=== PATIENT | female | born 1935 | race Caucasian/White ===

== ENCOUNTER 2019-04-26 13:22 | Inpatient (IN) ==
--- NOTE | 2019-04-26 14:32 | EKG Report ---
Test Performed on : 04/26/2019 2:25:03 PM Test Reason : sob Blood Pressure : / mmHG Vent. Rate : 053 BPM Atrial Rate : 053 BPM P-R Int : 000 ms QRS Dur : 114 ms QT Int : 438 ms P-R-T Axes : 000 -18 064 degrees QTc Int : 410 ms Junctional rhythm. Incomplete left bundle branch block Nonspecific T wave abnormality Abnormal ECG When compared with ECG of 21-SEP-2017 22:36, Junctional rhythm. has replaced Sinus rhythm. Incomplete left bundle branch block has replaced Incomplete right bundle branch block Unconfirmed Result
[2019-04-26 14:51] LABS: BASO# 0.03 X1000 (0.0-0.2); BASO% 0.6 % (0.0-0.8); EOS# 0.16 X1000 (0.0-0.7); EOS% 3.2 % (0.0-10.0); HEMATOCRIT 30.4 % (37.0-47.0); HEMOGLOBIN 10.3 g/dL (12.0-16.0); LYMPH# 1.13 X1000 (1.2-3.4); LYMPH% 22.9 % (20.5-51.1); MCH 34.3 PG (27-31); MCHC 33.9 g/dL (33-37); MCV 101.3 FL (81-99); MONO# 0.29 X1000 (0.11-0.59); MONO% 5.9 % (1.7-9.3); MPV 11.1 FL (7.4-10.4); NEUT# 3.33 X1000 (1.4-6.5); NEUT% 67.4 % (42.2-75.2); PLT 146 X1000 (130-400); RDW 17.1 % (11.5-14.5); WBC 4.94 X1000 (4.8-10.8)
[2019-04-26] MEDS ORDERED: LASIX IV ONE (15:16)
[2019-04-26 15:23] LABS: ALB/GLOB RATIO 1.4; ALBUMIN 3.4 g/dL (3.5-5.0); CALCIUM 8.8 mg/dL (8.8-10.2); CREATININE 1.6 mg/dL (0.5-0.9); POTASSIUM 3.9 mmol/L (3.5-5.1); TOTAL BILIRUBIN 0.4 mg/dL (0.20-1.00); TOTAL PROTEIN 5.8 g/dL (6.3-8.3)
--- NOTE | 2019-04-26 16:00 | Diag Imaging Result Doc PS360 ---
CHEST-PORTABLE - 04/26/2019 INDICATION: sob COMPARISON: 09/21/2017 FINDINGS: Lung volumes are severely low. There is cardiomegaly. There are bibasilar airspace opacifications, likely pleural effusions. Infiltrates cannot be excluded. No obvious pulmonary edema. IMPRESSION: Nonspecific findings. Electronically signed by Cam Magdaleno 04/26/2019 3:58 PM
--- NOTE | 2019-04-26 17:10 | PROVIDER DOCUMENTATION ---
This chart was entered by Radhames Aldrich Scribe, acting as scribe for Kleber Monte DO. HPI-Musculoskeletal Pain/Inj - GENERAL Chief Complaint: Shortness of Breath Stated Complaint: SOB Time Seen by Provider: 04/26/19 14:04 Source: patient, EMS - HX OF PRESENT ILLNESS-MUSKULOSKELTAL Nature of Presenting Problem: 83 yof presents to the ed v/a ems with c/o LE pain and SOB. pt states started a week ago. pt states LE pain has gotten worse , with standing. pt states SOB and chest pain started today. pt "was put on tremors medication but doesn't remember what it is ." Quality of Pain: reports: aching Severity in ED: mild Onset/Duration: 1 week ago (LE pain), this morning (SOB, chest pain) Timing: still present Modifying Factors: improves with: nothing Any recent injury?: No Locality of Occurance: Home Similar Symptoms Previously?: No Recently seen or treated by another doctor?: No - TRUNK INJURY Location of Injury(s)/Pain: reports: chest Context / Method of Injury: reports: none Associated Symptoms: reports: chest pain - LOWER EXTREMITY PAIN/INJURY Lower Extremities Pain: leg: bilateral Context / Method of Injury: reports: unknown Associated Symptoms: reports: denies symptoms Review of Systems - Adult - REVIEW OF SYSTEMS - ADULT Constitutional: denies: chills, fever Eyes: reports: no symptoms reported Ears, Nose, Mouth & Throat: reports: no symptoms reported Cardiovascular: reports: chest pain. denies: palpitations, syncope Respiratory: reports: shortness of breath. denies: cough, dyspnea on exertion, wheezing Gastrointestinal: denies: abdominal pain, nausea, vomiting Genitourinary: reports: no symptoms reported Musculoskeletal: reports: see HPI. denies: back pain, neck pain Integumentary: reports: no symptoms reported Neurological: denies: dizziness/vertigo, headache/migraines Psychiatric: reports: no symptoms reported Endocrine: reports: no symptoms reported Hematologic/Lymphatic: reports: no symptoms reported Allergic/Immunologic: reports: no symptoms reported All Other Systems: Reviewed and Negative Past History - Adult - PAST MEDICAL HISTORY-ADULT Review of Records: reports: Old Records Reviewed, Nursing Assessment Review, Medications Reviewed, Social history reviewed & non-contributory. Major Childhood Illnesses: reports: denies history Cardiovascular: reports: HTN Respiratory: reports: denies history Gastrointestinal: reports: GERD Obstetrical/Gynecological: reports: denies history Genitourinary: reports: denies history Musculoskeletal: reports: denies history Neurological: reports: CVA Psychiatric: reports: denies history Endocrine/Immune: reports: cancer (Leukemia) Other Conditions: reports: denies history - PRIOR SURGERIES/PROCEDURES Surgical/Procedure History: reports: hysterectomy, hernia repair, joint replacement, back/neck (back ), other (cataract removal) - PRIOR HOSPITALIZATIONS Prior Hospitalizations: reports: for other non-related - IMMUNIZATION STATUS Childhood Immunizations: See Nurse Assessment Flu Vaccine: See Nurse Assessment - FAMILY HISTORY Family History: reviewed, not pertinent - SOCIAL HISTORY Smoking: cigarettes, less than 1 pack/day Provider spent 3-5 mins advising pt. on dangers of tobacco.: Discussed manners to quit use, and f/u contacts for add'l counseling. Living Situation: family Physical Exam-Injury Related - Physical Exam-Injury Related Initial Vital Signs Reviewed: Yes General Appearance: appears well, alert, no apparent distress Eyes: PERRL/EOMI Head, Ears, Nose, Mouth & Throat: moist mucous membranes, normal ENT inspection, TMs normal (dry mouth) Neck: non-tender, full range of motion, supple Respiratory: chest non-tender, lungs clear, normal breath sounds, rales. negative: stridor, wheezing Cardiovascular: bradycardia (56) Chest/Breast: deferred Abdominal Exam: normal bowel sounds, non tender, soft. negative: guarding, rigid, rebound, tenderness Female Genitalia/Pelvic Exam: deferred Lymphatic: no adenopathy Back Exam: normal inspection, no CVA tenderness Extremity: normal range of motion, non-tender, normal gait Integumentary: normal color, warm/dry Neurologic: grossly normal Psych/Mental Status: normal mood/affect, normal thought content, normal thought process, oriented x 3 - Glascow Coma Score Best Eye Response ([place]): (4) open spontaneously Best Verbal Response ([place]): (5) oriented Best Motor Response ([place]): (6) obeys commands [place] Total: 15 Progress - PLAN OF CARE/RESULTS Progress/Plan/Lab Results: Vital Signs - 8 hr 04/26/19 14:17 Temperature 97.6 F Pulse Rate 56 L Respiratory Rate 15 Blood Pressure 141/63 O2 Sat by Pulse Oximetry 90 L Laboratory Results - last 24 hr 10/05/19 10/05/19 10/05/19 14:32 14:32 14:32 WBC RBC Hgb Hct MCV MCH MCHC RDW Std Deviation Plt Count MPV Immature Gran % (Auto) Neut % (Auto) Lymph % (Auto) [place] % (Auto) Eos % (Auto) Baso % (Auto) Immature Gran # (Auto) Neut # (Auto) Lymph # (Auto) [place] # (Auto) Eos # (Auto) Baso # (Auto) Sodium 141 Potassium 3.9 Chloride 101 Carbon Dioxide 29 Anion Gap 11 BUN 16 Creatinine 1.6 H Estimated GFR/1.73 m2 31 BUN/Creatinine Ratio 10 Glucose 153 H Calculated Osmolality 285 Calcium 8.8 Total Bilirubin 0.40 AST 32 H ALT 18 Alkaline Phosphatase 155 H Troponin T 0.053 Phb-W-Zezvgftfyco Pept 3269 H Total Protein 5.8 L Albumin 3.4 L Globulin 2.4 Albumin/Globulin Ratio 1.4 04/26/19 14:32 WBC 4.94 RBC 3.00 L Hgb 10.3 L Hct 30.4 L MCV 101.3 H MCH 34.3 H MCHC 33.9 RDW Std Deviation 17.1 H Plt Count 146 MPV 11.1 H Immature Gran % (Auto) 0.0 Neut % (Auto) 67.4 Lymph % (Auto) 22.9 [place] % (Auto) 5.9 Eos % (Auto) 3.2 Baso % (Auto) 0.6 Immature Gran # (Auto) 0.00 Neut # (Auto) 3.33 Lymph # (Auto) 1.13 L [place] # (Auto) 0.29 Eos # (Auto) 0.16 Baso # (Auto) 0.03 Sodium Potassium Chloride Carbon Dioxide Anion Gap BUN Creatinine Estimated GFR/1.73 m2 BUN/Creatinine Ratio Glucose Calculated Osmolality Calcium Total Bilirubin AST ALT Alkaline Phosphatase Troponin T Zby-H-Zglpuzscemy Pept Total Protein Albumin Globulin Albumin/Globulin Ratio Orders Category Date Time Status CHEST-PORTABLE [RAD] Stat Exams 04/26/19 14:14 Completed CBC WITH ELECTRONIC DIFF [HEME] Stat Lab 04/26/19 14:32 Completed CK PROFILE [SP CHEM] Stat Lab 04/26/19 15:50 Ordered COMPREHENSIVE METABOLIC PANEL [CHEM] Stat Lab 04/26/19 14:32 Completed PRO B-NATRIURETIC PEPTIDE Stat Lab 04/26/19 14:32 Completed TROPONIN T Stat Lab 04/26/19 14:32 Completed TROPONIN T Stat Lab 04/26/19 15:50 Ordered Furosemide [Lasix] Med 04/26/19 15:16 Discontinued 20 mg IV NOW ONE EKG [EKG] Stat Ther 04/26/19 14:16 Draft Result Diagrams: 04/26/19 14:32 04/26/19 14:32 - EKG 1 Time of EKG reading by physician:: 14:25 EKG Read and Signed by:: Kleber Monte EKG Interpretation (*Must complete 3 of following elements*): Abnormal Rate: 53 Rhythm: junctional rhythm [place]: normal QRS: normal NM Interval: normal ST Wave: normal (nonspecific T wave abnormality) Comments: incomplete left bundle branch - XRAY 1 XRAY Study: Chest Impression: See EMR Report (CHEST-PORTABLE - 04/26/2019 INDICATION: sob COMPARISON: 09/21/2017 FINDINGS: Lung volumes are severely low. There is cardiomegaly. There are bibasilar airspace opacifications, likely pleural effusions. Infiltrates cannot be excluded. No obvious pulmonary edema. IMPRESSION: Nonspecific findings. Electronically signed by Cam Magdaleno 04/26/2019 3:58 PM 04/26/19 1558 Interpreting Physician: Cam Magdaleno MD Dictated Date/Time: 04/26/19 1557 cc: Kleber Monte DO; Jignesh Nguyen MD) - CONSULTS/PCP/HOSPITALIST Notification #1 *Consult/PCP/Hospitalist*: Dr Lawrence Time Discussed: 17:09 Consult Disposition: Will see in ED Departure - Departure Date of Disposition Decision: 04/26/19 Time of Disposition Decision: 17:10 DIAGNOSIS: Tobacco abuse disorder, CHF (congestive heart failure) Disposition: ADMITTED INPATIENT 09 Certified Medical Emergency: Emergent Condition: Good Referrals and Follow-Ups: Jignesh Nguyen MD [Primary Care Provider] - - Critical Care Note This patient required my direct & personal management of CC.: No Attestation - Physician/ BERT Attestation Patient care was provided by Advanced Practice Provider:: No The physician spent face to face time with patient:: Yes Advanced Practice Provider documentation review:: Supervising physician onsite and consulted in the evaluation and care of this patient. The physician did have a face to face encounter with the patient. This chart was documented by the indicated scribe, (Radhames Aldrich, Eve) and accurately reflects the services I performed and decisions made by , Kleber Monte DO, as attested by the provider's signature.
[2019-04-26] MEDS ORDERED: TYLENOL PO PRN (17:32)
[2019-04-26] MEDS ORDERED: ZOFRAN IV PRN (17:32)
[2019-04-26] MEDS ORDERED: SODIUM CHLORIDE 0.9% INJ SCH (17:45)
[2019-04-26 17:56] LABS: HEMOGLOBIN A1C 5.4 % (4.8-6.0)
[2019-04-26 18:06] LABS: CK INDEX 1.8 (0.0-2.5); CK-MB 6.21 ng/mL (0.0-5.0)
--- NOTE | 2019-04-26 19:17 | HISTORY AND PHYSICAL ---
PRIMARY CARE PROVIDER: Jignesh Nguyen MD ENDING MACHINE OPERATOR: Michael Dumont III, MD, in [place]. CHIEF COMPLAINT: Increasing swelling and shortness of breath over the last week. HISTORY OF PRESENT ILLNESS: Ms. Jalloh is a 83-year-old female with a history of diastolic congestive heart failure, CML, hypothyroidism and morbid obesity, who was brought to the ER by family due to increased swelling that the patient has noticed over the last week. The patient is on Lasix at home, but she stated that it was not working to take care of the swelling in her arms and legs. She now reports that she has more swelling in her abdomen in addition. She also complains of increasing shortness of breath with minimal exertion. She denies having any chest pain, dizziness or headache. The patient was constipated up until yesterday, at which time she took some laxatives and was able to have a bowel movement. The patient is followed by Dr. Dumont in [place] for her cardiac issues. The patient is on Eliquis for atrial fibrillation. In the ER, chest x-ray was done that revealed bibasilar air-space opacifications. PAST MEDICAL HISTORY: 1. Paroxysmal atrial fibrillation. 2. Hypertension. 3. Gout. 4. Hypothyroidism. 5. Diastolic congestive heart failure. 6. History of TIA. 7. COPD. 8. CML. 9. Diverticulosis. 10. Chronic bronchitis. PAST SURGICAL HISTORY: 1. Lumbar fusion. 2. Hysterectomy. 3. Bilateral cataract removal. 4. Left hip surgery. SOCIAL HISTORY: The patient currently lives at home with her [id number]-stb. She denies any tobacco, alcohol or illicit drug use. FAMILY HISTORY: Reviewed and noncontributory due to age. ALLERGIES: 1. Codeine. 2. Sodium acid pyrophosphate, which causes anaphylaxis. HOME MEDICATIONS: 1. Allopurinol 300 mg oral every morning. 2. Xanax 0.25 mg oral every morning. 3. Amiodarone 200 mg oral daily. 4. Norvasc 5 mg oral daily. 5. Eliquis 2.5 mg oral daily. 6. Colchicine 1/2 tablet oral every morning. 7. Colace 100 mg oral every morning. 8. Cymbalta 60 mg p.o. daily. 9. Lasix 40 mg oral daily p.r.n. 10. Gabapentin 300 mg oral every morning. 11. Gleevec 400 mg oral every morning. 12. Synthroid 50 mcg oral every morning. 13. Zofran 8 mg oral every 4 hours p.r.n. for nausea. 14. Protonix 40 mg p.o. every morning. 15. Temazepam 30 mg oral every morning. REVIEW OF SYSTEMS: A 12-point review of systems has been performed. Please refer to the history of present illness for pertinent positives. PHYSICAL EXAMINATION: VITAL SIGNS: Temperature 97.6 degrees, blood pressure 162/75, heart rate 54, respirations 15, O2 saturation 96% on 2 L nasal cannula. GENERAL: This is a morbidly obese female, lying comfortably on the stretcher in no acute distress. HEENT: Head normocephalic, atraumatic. SKIN: No rashes, no lesions. HEART: S1, S2 normal. Bradycardic. LUNGS: Coarse breath sounds. No wheezing or rales. ABDOMEN: Positive bowel sounds. Soft, obese, nontender, nondistended. EXTREMITIES: Edema 2+ bilaterally. No calf tenderness. NEUROLOGIC: The patient is alert and oriented x3. No focal neurologic deficits noted. Cranial nerves 2 through 12 intact. LABORATORY DATA: White blood cell count 4.9, hemoglobin 10, hematocrit 30, platelets 146,000. Sodium 141, potassium 3.9, chloride 101, CO2 is 29, BUN 16, creatinine 1.6, glucose 153. AST 32, ALT 18, alkaline phosphatase 155. CK 337, troponin 0.04. ProBNP 3269. Albumin 3.4. DIAGNOSTIC DATA: Chest x-ray shows bibasilar air-space opacifications. ASSESSMENT AND PLAN: 1. Acute diastolic congestive heart failure exacerbation. We will start the patient on diuretic therapy. We will also continue to monitor the patient's volume status closely. We will also order an echocardiogram. 2. Paroxysmal atrial fibrillation. The patient is rate-controlled. Continue on amiodarone and Eliquis. 3. Morbid obesity. Aware. 4. Tobacco dependence. The patient has been counseled about smoking cessation. 5. Hypothyroidism. Continue on Synthroid. 6. Chronic myelogenous leukemia. The patient is followed by Dr. Howe. 7. Gastroesophageal reflux disease. Continue on Protonix. 8. Chronic constipation. We will start the patient on MiraLAX. 9. Chronic kidney disease stage 3. Stable. 10. Disposition. We will consult Palliative Care as well as Internal Audit Director. cc: Zoe Lawrence MD MTDD
--- NOTE | 2019-04-26 19:30 | Diag Imaging Result Doc PS360 ---
CT THORAX W/O CONTRAST - 04/26/2019 INDICATION: dyspnea COMPARISON: Chest x-ray from earlier today FINDINGS: There is a moderate right and small left pleural effusion. There is cardiomegaly. There is advanced coronary artery disease. There is severe calcification of the mitral valve annulus. There is body wall edema. Upper abdominal images are unremarkable. There is diffuse hazy groundglass interstitial infiltrate compatible with pulmonary edema. There is a small pulmonary nodule in the left upper lobe measuring about 9.5 mm. Stable calcified granuloma in the right upper lobe. There are advanced degenerative changes throughout the thoracic spine notably the lower spine. No acute bony lesions. IMPRESSION: 1. Cardiomegaly, interstitial pulmonary edema, pleural effusions. Body wall edema. 2. Small nonspecific nodule in the left upper lobe. This exam was performed using automated exposure control, adjustment of mA or kV according to patient size, and/or use of iterative reconstruction technique Electronically signed by Cam Magdaleno 04/26/2019 7:28 PM
[2019-04-26 20:37] LABS: URINE SOURCE CLEAN CATCH
[2019-04-26 20:52] LABS: BILIRUBIN URINE NEGATIVE (NEGATIVE); BLOOD URINE NEGATIVE (NEGATIVE); COLOR YELLOW; GLUCOSE URINE NEGATIVE (NEGATIVE); KETONE URINE NEGATIVE (NEGATIVE); LEUKOCYTES URINE NEGATIVE (NEGATIVE); NITRITE URINE NEGATIVE (NEGATIVE); PROTEIN URINE TRACE mg/dL (NEGATIVE); SP GRAVITY URINE 1.012; TURBIDITY URINE HAZY (CLEAR); UROBILINOGEN URINE NORMAL (NORMAL)
[2019-04-26 20:55] LABS: UR EPITHELIAL CELLS >10 /HPF (<10); URINE BACTERIA NEGATIVE /HPF; URINE RBC <10 /HPF (<10); URINE WBC TNTC /HPF (<10)
[2019-04-26 21:02] LABS: URINE CASTS NONE SEEN; URINE CRYSTALS NONE SEEN; URINE YEAST PRESENT
[2019-04-26 21:03] LABS: URINE SMALL ROUND CELLS TRANS PRESENT
[2019-04-26] MEDS: LASIX IV SCH (22:12)
[2019-04-26] MEDS: RESTORIL PO SCH (22:12)
[2019-04-26 23:59] LABS: CK-MB 7.38 ng/mL (0.0-5.0)
[2019-04-27] MEDS: PERCOCET-5 PO PRN ×2 (05:00→14:50)
--- NOTE | 2019-04-27 05:25 | EKG Report ---
Test Performed on : 04/27/2019 05:15:49 AM Test Reason : chest pain Blood Pressure : / mmHG Vent. Rate : 054 BPM Atrial Rate : 063 BPM P-R Int : 000 ms QRS Dur : 118 ms QT Int : 430 ms P-R-T Axes : 000 050 071 degrees QTc Int : 407 ms Junctional rhythm. Nonspecific intraventricular conduction delay Nonspecific ST and T wave abnormality Abnormal ECG When compared with ECG of 26-APR-2019 14:25, (Unconfirmed) No significant change was found Confirmed by Sherry MENA, Emil Lee ([id number]) on 04/27/2019 9:01:16 AM
[2019-04-27 05:32] LABS: HEMATOCRIT 28.8 % (37.0-47.0); HEMOGLOBIN 9.8 g/dL (12.0-16.0); MCH 35.1 PG (27-31); MCV 103.2 FL (81-99); MPV 11.8 FL (7.4-10.4); RBC 2.79 XMIL (4.2-5.4); RDW 16.8 % (11.5-14.5); WBC 6.11 X1000 (4.8-10.8)
[2019-04-27] MEDS: PROTONIX IV SCH ×2 (05:49→06:10)
[2019-04-27 05:51] LABS: ALBUMIN 2.9 g/dL (3.5-5.0); CALCIUM 8.6 mg/dL (8.8-10.2); CREATININE 1.7 mg/dL (0.5-0.9); PHOSPHORUS 3.1 mg/dL (2.7-4.5); POTASSIUM 3.3 mmol/L (3.5-5.1)
[2019-04-27 06:45] LABS: CK INDEX 1.9 (0.0-2.5); CK-MB 5.88 ng/mL (0.0-5.0)
[2019-04-27] MEDS ORDERED: KLOR-CON PO ONE (07:12)
[2019-04-27] MEDS ORDERED: VITAMIN D PO SCH (09:00)
[2019-04-27] MEDS ORDERED: LASIX IV SCH (09:00)
[2019-04-27] MEDS ORDERED: CYMBALTA PO SCH (09:00)
[2019-04-27] MEDS: MIRALAX PO SCH (09:32)
[2019-04-27] MEDS: COLACE PO SCH (09:32)
[2019-04-27] MEDS: SYNTHROID PO SCH (09:32)
[2019-04-27] MEDS: ZYLOPRIM PO SCH (09:32)
[2019-04-27] MEDS: NEURONTIN PO SCH (09:32)
[2019-04-27] MEDS: XANAX PO SCH (09:32)
[2019-04-27] MEDS: CORDARONE PO SCH (09:33)
[2019-04-27] MEDS: ELIQUIS PO SCH (09:33)
[2019-04-27] MEDS: LASIX IV SCH ×2 (09:33→20:00)
[2019-04-27] MEDS: PATIENT'S OWN MED PO SCH ×2 (12:38→14:56)
--- NOTE | 2019-04-27 17:28 | PROGRESS NOTE ---
DATE: 04/27/2019 SUBJECTIVE: The patient is sitting up in bed. She is more awake and alert today. She states that she feels a lot better. OBJECTIVE: Vital Signs: Temperature 97.9 degrees, blood pressure 141/56, heart rate 60, respirations 18, O2 saturations 100% on 2 L nasal cannula. Intake 240, output 950. General: This is an elderly female lying in bed in no acute distress. Heart: S1, S2 normal. Regular rate and rhythm. Lungs: Equal air entry bilaterally. No wheezing. No rales. No rhonchi. Abdomen: Positive bowel sounds. Soft, nontender, nondistended. Extremities: 1+ edema bilaterally. Neurologic: The patient is alert and oriented x3. LABS: Hemoglobin 9.8, hematocrit 28, platelets 145,000, white blood cell count 6. Sodium 140, potassium 3.3, chloride 99, CO2 33, BUN 15, creatinine 1.7, glucose 116. ASSESSMENT AND PLAN: 1. Acute diastolic congestive heart failure exacerbation. Continue with diuretic therapy. The echocardiogram is currently pending. 2. Paroxysmal atrial fibrillation. Continue on amiodarone and Eliquis. 3. Tobacco dependence. The patient has been counseled about smoking cessation. 4. Chronic myelogenous leukemia. Aware. 5. Hypothyroidism. Continue on Synthroid. 6. Chronic kidney disease stage 3. Stable. We will monitor closely while receiving diuretic therapy. 7. Chronic constipation. Continue on MiraLAX. 8. We will consult physical therapy. DISPOSITION: We will consult with Palliative Care for goals of care. cc: Zoe Lawrence MD MTDD
[2019-04-27] MEDS: RESTORIL PO SCH (20:00)
[2019-04-28] MEDS: PROTONIX IV SCH (06:10)
[2019-04-28 06:25] LABS: HEMOGLOBIN 9.8 g/dL (12.0-16.0); MCHC 33.8 g/dL (33-37); MCV 103.6 FL (81-99); MPV 11.8 FL (7.4-10.4); RBC 2.8 XMIL (4.2-5.4); RDW 16.7 % (11.5-14.5); WBC 5.84 X1000 (4.8-10.8)
[2019-04-28 06:45] LABS: CALCIUM 8.9 mg/dL (8.8-10.2); CREATININE 1.5 mg/dL (0.5-0.9); PHOSPHORUS 2.3 mg/dL (2.7-4.5); POTASSIUM 3.6 mmol/L (3.5-5.1)
[2019-04-28] MEDS: PERCOCET-5 PO PRN ×3 (07:28→21:19)
--- NOTE | 2019-04-28 08:15 | ECHO REPORT ---
ORDER DATE: 04/27/2019 INTERPRETING PHYSICIAN: Dr. Sanchez REQUESTING PHYSICIAN: CLINICAL INDICATIONS: This is an 83-year-old female with atrial fibrillation, CHF, hypertension. M-MODE MEASUREMENTS: Right ventricle: cm. Left ventricle end diastole: 5.6 cm. Left ventricle end systole: 3.6 cm. Posterior wall: 1.2 cm. Interventricular septum: 1.2 cm. Left atrium: 5.4 cm. Aortic root: 2.9 cm. SUMMARY OF 2-DIMENSIONAL IMAGIN. The left ventricular function appears to be normal. Ejection fraction is grossly estimated at 65%. 2. There is mild degree of concentric LVH. 3. Left atrium is markedly enlarged. 4. Aortic valve shows calcification of the cusps with restricted opening. 5. The maximum gradient across the outflow tract of left ventricle is 66 mmHg, mean gradient is 37 mmHg. The calculated aortic valve area using the continuity equation is 1.1 cm sq, suggesting moderate degree of aortic stenosis. There is no evidence of any significant degree of aortic regurgitation. 6. Mitral annulus is densely calcified. The pulse wave Doppler of mitral inflow shows a single filling wave. 7. The patient appears to be in atrial fibrillation. 8. The color flow mapping of the mitral valve suggests a moderate to moderately severe degree of regurgitation, although again this study is less than optimal. Adequate quantification of the mitral regurgitation is difficult. 9. The tricuspid valve shows a moderate to moderately severe degree of regurgitation. 10.The pulmonary pressure is estimated to be in the neighborhood of 76 mmHg. 11.The inferior vena cava is dilated. 12.The velocity of mitral annulus is decreased, suggesting impaired left ventricular relaxation. 13.The pulmonic valve shows very minimal degree of regurgitation. 14.There is no pericardial effusion, mass or thrombus. CONCLUSIONS: In summary, this study was technically difficult. It shows: 1. Normal left ventricular systolic function. Ejection fraction 65% with mild degree of concentric LVH. 2. Significantly enlarged left atrium. 3. Dense calcification of mitral annulus with moderate to moderately severe degree of mitral regurgitation. 4. There is a moderate degree of aortic stenosis with a mean gradient of 37 mmHg and a valve area of 1.1 cm sq. 5. There is significant pulmonary hypertension estimated at 73 mmHg. Clinical correlation is recommended. cc: MD Zoe Rick MD
[2019-04-28] MEDS: MIRALAX PO SCH (08:28)
[2019-04-28] MEDS: COLACE PO SCH (08:31)
[2019-04-28] MEDS: CORDARONE PO SCH (08:31)
[2019-04-28] MEDS: ELIQUIS PO SCH (08:31)
[2019-04-28] MEDS: XANAX PO SCH (08:31)
[2019-04-28] MEDS: LASIX IV SCH ×2 (08:31→21:09)
[2019-04-28] MEDS: ZYLOPRIM PO SCH (08:31)
[2019-04-28] MEDS: SYNTHROID PO SCH (08:31)
[2019-04-28] MEDS: NEURONTIN PO SCH (08:31)
[2019-04-28] MEDS: PATIENT'S OWN MED PO SCH (08:32)
--- NOTE | 2019-04-28 10:55 | PROGRESS NOTE ---
DATE: 04/28/2019 SUBJECTIVE: The patient is resting comfortably. She states that she feels better today. No acute events noted overnight. OBJECTIVE: Vital Signs: Temperature 98 degrees, blood pressure 149/93, heart rate 62, respirations 17, O2 saturation is 100% on 3 L nasal cannula. General: This is a chronically ill- appearing, elderly female lying in bed, in no acute distress. Heart: S1, S2 normal. Lungs: Equal air entry bilaterally. No wheezing. No rales. Abdomen: Positive bowel sounds. Soft, nontender, nondistended. Extremities: Trace pedal edema. No cyanosis. No calf tenderness. Neurologic: The patient is alert and oriented x4. Labs: White blood cell count 5.8, hemoglobin 9.8, hematocrit 29, platelets 141,000. Sodium 140, potassium 3.6, chloride 98, CO2 of 33, BUN 16, creatinine 1.5, glucose 115, phosphorus 2.3. ASSESSMENT AND PLAN: 1. Acute diastolic congestive heart failure exacerbation. Improved. The patient appears to be responding well to diuretic therapy. Continue with diuretic therapy as ordered. 2. Paroxysmal atrial fibrillation. The patient is rate controlled. Continue on amiodarone and Eliquis. 3. Chronic myeloid leukemia. Aware. 4. Tobacco dependence. The patient has been counseled about smoking cessation. 5. Hypothyroidism. Continue on Synthroid. 6. Chronic kidney disease stage 3. Stable. 7. Chronic constipation. Improved. Continue with MiraLAX. 8. Obesity. Aware. 9. Continue with physical therapy. 10. Disposition. Palliative care has been consulted for goals of care. The patient is interested in using a different hospice service upon discharge. cc: Zoe Lawrence MD
[2019-04-28] MEDS ORDERED: POTASSIUM PHOSPHATE 30 MMOL in NS 250 ML IV ONE (11:30)
[2019-04-28] MEDS: RESTORIL PO SCH (21:08)
[2019-04-29] MEDS: PROTONIX IV SCH (06:38)
[2019-04-29] MEDS ORDERED: SYNTHROID PO SCH (07:00)
[2019-04-29 07:10] LABS: HEMATOCRIT 29.5 % (37.0-47.0); MCH 34.7 PG (27-31); MCHC 33.9 g/dL (33-37); MCV 102.4 FL (81-99); MPV 11.6 FL (7.4-10.4); RBC 2.88 XMIL (4.2-5.4); RDW 16.7 % (11.5-14.5); WBC 4.89 X1000 (4.8-10.8)
[2019-04-29 07:16] LABS: CALCIUM 8.8 mg/dL (8.8-10.2); CREATININE 1.4 mg/dL (0.5-0.9); PHOSPHORUS 3.2 mg/dL (2.7-4.5); POTASSIUM 3.6 mmol/L (3.5-5.1)
[2019-04-29] MEDS ORDERED: CYMBALTA PO SCH (09:00)
[2019-04-29] MEDS: MIRALAX PO SCH (09:08)
[2019-04-29] MEDS: NEURONTIN PO SCH (09:09)
[2019-04-29] MEDS: COLACE PO SCH (09:09)
[2019-04-29] MEDS: XANAX PO SCH (09:09)
[2019-04-29] MEDS: ELIQUIS PO SCH (09:09)
[2019-04-29] MEDS: CORDARONE PO SCH (09:09)
[2019-04-29] MEDS: ZYLOPRIM PO SCH (09:10)
[2019-04-29] MEDS: PERCOCET-5 PO PRN (09:10)
[2019-04-29] MEDS: LASIX IV SCH (09:11)
[2019-04-29] MEDS: PATIENT'S OWN MED PO SCH (09:12)
[2019-04-29 11:46] VITALS: BP 146/77
--- NOTE | 2019-04-29 13:28 | DISCHARGE SUMMARY ---
ADMISSION DATE: 04/26/2019 DISCHARGE DATE: 04/29/2019 PERTINENT STUDIES: Initial chest x-ray with bilateral pleural effusions. CT chest with interstitial edema and pleural effusions, as well as body wall edema. Also with a small nodule in the left upper lobe, just under a centimeter. Echocardiogram showing mild LVH, EF 65%, enlarged left atrium, [id number] mitral regurgitation, moderate aortic stenosis, significant pulmonary hypertension, [id number] tricuspid regurgitation. Initial creatinine 1.6; discharge creatinine 1.4. BNP 3269. DISCHARGE DIAGNOSES: 1. Acute on likely chronic diastolic congestive heart failure. 2. Pulmonary hypertension. 3. Moderate aortic stenosis. 4. Wncjczrh-ui-fpvsuo mitral and tricuspid regurgitation. 5. Paroxysmal atrial fibrillation. 6. Chronic myeloid leukemia. 7. Tobacco abuse. 8. Hypothyroidism. 9. Chronic kidney disease 3. 10. Chronic constipation. 11. Obesity. 12. Insomnia. 13. Situational anxiety and depression. HOSPITAL COURSE: The patient presented initially with complaints of primarily increased swelling. It was in both her arms, legs, and abdomen. Also associated with shortness of breath on exertion. Initial chest x-ray was not very impressive, but CT was obtained shortly thereafter and did show pulmonary edema and effusions. Echo was obtained, which showed normal EF, but significant pulmonary hypertension, multiple valvular dysfunctions. The patient was thought to have acute on likely chronic diastolic congestive heart failure related to the above. She was given diuresis with Lasix IV b.i.d., with rapid improvement in dyspnea. Her swelling was slower to improve, but did improve slowly. As the patient improved, she was transitioned over to oral Lasix. She was in and out of atrial fibrillation, but remained largely rate controlled during the hospitalization. Her admission creatinine was minimally over her baseline at 1.6, and it came down to 1.4 despite diuresis. There appears to be roughly stable CKD 3, bordering on 4. Once the patient's limb and pulmonary edema were improved, she remained fairly deconditioned, so she was sent to rehab for further therapy. DISCHARGE VITAL SIGNS: Temperature 99.3 degrees, pulse 68, respirations 24, blood pressure 146/77, O2 saturation 94% on 3 L by nasal cannula. DISCHARGE DIET: Cardiac. DISCHARGE MEDICATIONS: Nitroglycerin 0.4 mg sublingual every 5 minutes p.r.n. chest pain, allopurinol 300 mg daily, Colace 100 daily, amiodarone 200 mg p.o. daily, Cymbalta 60 mg p.o. daily, Eliquis 2.5 mg p.o. daily, Gleevec 400 mg p.o. daily, Primidone 50 mg p.o. daily, Protonix 40 mg p.o. daily, Synthroid 50 mcg p.o. daily, Zofran 8 mg every 4 hours as needed, Restoril 15 mg p.o. at bedtime, gabapentin 300 mg p.o. daily, Lasix 40 mg p.o. b.i.d., MiraLAX 17 grams p.o. daily as needed, Norvasc 5 mg p.o. daily, Percocet 5 mg every 6 hours p.r.n., Tylenol 650 p.o. every 6 hours p.r.n. (not to exceed 3 grams of Tylenol in a day), Xanax 0.25 daily as needed. FOLLOWUP AND PLAN: Patient discharging to rehab. Continue daily weights, monitor volume status. I recommended to follow up with PCP and Cardiology. TIME SPENT: Greater than 30 minutes were spent arranging discharge and counseling the patient.
[2019-04-29] MEDS ORDERED: FLU VACCINE IM ONE (15:06)
[2019-04-30] MEDS ORDERED: PROTONIX PO SCH (07:00)
== END 2019-04-29 15:16 | DRG 291 ==
LOC: SUPCPDRO → ED 13:22 → 2N 19:47 → SUATTDRO 19:47 → 4N 04-28 11:44
PROVIDERS: ATTEND Internal Medicine